=== PATIENT | male | born 1970 | race Caucasian/White ===

== ENCOUNTER 2021-05-18 20:39 | Observation (INO) | payer BC ==
[2021-05-18] MEDS ORDERED: Ondansetron PF 4 MG/2 ML Vial ONE (21:13)
[2021-05-18] MEDS ORDERED: Ketorolac Tromethamine 30 MG/ML VIAL ONE (21:14)
[2021-05-18 21:25] LABS: #Basophils 0.1 10x3/uL (0.0-0.2); #Eosinphils 0.2 10x3/uL (0.0-0.5); #Neutrophils 9.3 10x3/uL (1.5-8.4); %Basophils 1.1 % (0.0-2.0); %Eosinophils 1.8 % (0.0-6.0); %Lymphocytes 14.2 % (18.0-47.0); %Monocytes 7.8 % (0.0-10.0); %Neutrophils 74.2 % (40.0-75.0); Hemoglobin 17.7 g/dL (13.5-17.5); Mean Corpuscular HGB CONC 33.8 g/dL (32.0-36.0); Mean Corpuscular Hemoglobin 30.5 pg (27.0-33.0); Mean Corpuscular Volume 90.2 fl (81.2-95.1); Mean Platelet Volume 10.6 fl (7.4-10.4); Platelet Count 218 10x3/uL (150-450); RBC Distribution Width 12.2 % (11.5-14.5); Red Blood Cell (RBC) Count 5.81 10x6/uL (4.32-5.72); White Blood Cell (WBC) Count 12.5 10x3/uL (3.5-10.5)
[2021-05-18 21:32] LABS: ALT (SGPT) 36 U/L (8-55); AST (SGOT) 31 U/L (5-34); Albumin 4.6 g/dL (3.5-5.0); Alkaline Phosphatase 65 U/L (40-110); Anion Gap 14 mmol/L (10-20); BUN (Urea Nitrogen) 22 mg/dL (8.9-20.6); Calc. Creatinine Clearance 0 mL/min (70-130); Calcium 9.8 mg/dL (7.8-10.44); Carbon Dioxide 26 mmol/L (22-29); Chloride 103 mmol/L (98-107); Globulin 2.8 g/dL (2.4-3.5); Glucose 125 mg/dL (70-105); Potassium 4.2 mmol/L (3.5-5.1); Protein, Total 7.4 g/dL (6.0-8.3); Sodium 139 mmol/L (136-145)
[2021-05-18 21:43] LABS: Bilirubin Neg (Negative); Blood, Urine Negative (Negative); Clarity Clear (Clear); Glucose, Urine (Dipstick) Normal (Negative); Ketone, Urine 5 mg/dL (Negative); Leukocyte Negative (Negative); Nitrite Negative (Negative); Protein, Urine (Dipstick) 30 mg/dl (Neg-Trace); Specific Gravity, Urine 1.025 (1.002-1.036)
[2021-05-18 21:50] LABS: Bacteria/HPF Rare-Few HPF (None Seen); Mucous/LPF 1+ LPF (<2+); RBC/HPF None Seen HPF (0-3); Squamous Epithelial 0-3 HPF (0-3); WBC/HPF None Seen HPF (0-3)
[2021-05-18 21:54] LABS: Calcium Oxalate Crystals 2+ HPF (None Seen)
[2021-05-18] MEDS ORDERED: Morphine 4 MG/ML VIAL ONE ×2 (21:54→22:24)
[2021-05-18] MEDS ORDERED: diphenhydrAMINE 50 MG/ML VIAL ONE (23:07)
[2021-05-18] MEDS ORDERED: Metoclopramide HCl 10 MG/2 ML VIAL ONE (23:08)
[2021-05-18] MEDS ORDERED: Acetaminophen 325 MG TAB PO PRN (23:36)
[2021-05-18] MEDS ORDERED: Senokot S 8.6-50 MG TAB PO PRN (23:36)
[2021-05-18] MEDS ORDERED: Zolpidem Tartrate 5 MG TAB PO PRN (23:36)
[2021-05-18] MEDS ORDERED: Ondansetron PF 4 MG/2 ML Vial IVP PRN (23:36)
[2021-05-19 02:35] VITALS: BMI 32.1
[2021-05-19] MEDS ORDERED: Morphine 4 MG/ML VIAL SLOW IVP PRN (02:47)
[2021-05-19] MEDS ORDERED: Lactated Ringer's 500 ML IV SCH (03:00)
[2021-05-19] MEDS: Lactated Ringer's 1,000 ML IV SCH ×3 (03:21→21:49)
[2021-05-19] MEDS: Morphine 4 MG/ML VIAL SLOW IVP PRN ×2 (03:37→07:45)
[2021-05-19 05:14] LABS: #Basophils 0.1 10x3/uL (0.0-0.2); #Eosinphils 0.2 10x3/uL (0.0-0.5); #Monocytes 0.9 10x3/uL (0.0-1.1); #Neutrophils 6.2 10x3/uL (1.5-8.4); %Basophils 1.2 % (0.0-2.0); %Eosinophils 2.3 % (0.0-6.0); %Monocytes 10.3 % (0.0-10.0); %Neutrophils 67.4 % (40.0-75.0); Hemoglobin 15.2 g/dL (13.5-17.5); Mean Corpuscular HGB CONC 32.8 g/dL (32.0-36.0); Mean Corpuscular Hemoglobin 30.2 pg (27.0-33.0); Mean Corpuscular Volume 92.2 fl (81.2-95.1); Mean Platelet Volume 10.8 fl (7.4-10.4); Platelet Count 179 10x3/uL (150-450); RBC Distribution Width 12.3 % (11.5-14.5); Red Blood Cell (RBC) Count 5.03 10x6/uL (4.32-5.72); White Blood Cell (WBC) Count 9.2 10x3/uL (3.5-10.5)
[2021-05-19] MEDS ORDERED: FLU VACC QS2021-22(6MOS UP)/PF 60 MCG/0.5 ML SYRINGE IM ONE (05:15)
[2021-05-19] MEDS ORDERED: Prevnar 13-Val Conj/PF 0.5 ML SYRINGE IM ONE (05:15)
[2021-05-19 05:30] LABS: ALT (SGPT) 27 U/L (8-55); AST (SGOT) 23 U/L (5-34); Albumin 3.6 g/dL (3.5-5.0); Alkaline Phosphatase 54 U/L (40-110); Anion Gap 9 mmol/L (10-20); BUN (Urea Nitrogen) 21 mg/dL (8.9-20.6); Bilirubin, Total 0.9 mg/dL (0.2-1.2); Calc. Creatinine Clearance 97 mL/min (70-130); Calcium 8.5 mg/dL (7.8-10.44); Carbon Dioxide 27 mmol/L (22-29); Chloride 108 mmol/L (98-107); Globulin 2.1 g/dL (2.4-3.5); Glucose 97 mg/dL (70-105); Magnesium 1.9 mg/dL (1.6-2.6); Potassium 4.4 mmol/L (3.5-5.1); Protein, Total 5.7 g/dL (6.0-8.3); Sodium 140 mmol/L (136-145)
[2021-05-19] MEDS: HYDROcodone/Acetaminophen 5/325 mg Tablet PO PRN ×4 (06:24→21:36)
[2021-05-19] MEDS ORDERED: hydrALAZINE 20 MG/ML VIAL SLOW IVP PRN (06:58)
[2021-05-19] MEDS ORDERED: Bisacodyl 5 MG TAB PO PRN (06:58)
[2021-05-19] MEDS ORDERED: GUAIFENESIN SF SOLN 200 MG/10 ML UDCUP PO PRN (06:58)
[2021-05-19] MEDS ORDERED: Loratadine 10 MG TAB PO PRN (06:58)
[2021-05-19] MEDS ORDERED: Cepastat Lozenges 1 LOZ PO PRN (06:58)
[2021-05-19] MEDS ORDERED: Loperamide HCl 2 MG CAP PO PRN (06:58)
[2021-05-19] MEDS ORDERED: Ondansetron ODT 4 MG TAB PO PRN (06:58)
[2021-05-19] MEDS ORDERED: Sodium Chloride 0.65% Nasal 44 ML BOT EA NARE PRN (06:58)
[2021-05-19] MEDS: Mometasone/Formoterol 200/5 60 PUFF INH SCH ×2 (07:15→19:40)
[2021-05-19] MEDS: Albuterol Sulfate 2.5 mg/3 ml Neb NEB PRN ×4 (07:31→19:30)
[2021-05-19] MEDS ORDERED: Famotidine/PF 20 mg/2ml Vial SLOW IVP SCH (09:00)
[2021-05-19] MEDS ORDERED: Ketorolac Tromethamine 30 MG/ML VIAL IVP PRN (09:43)
[2021-05-19] MEDS: Famotidine 20 MG TAB PO SCH ×2 (09:47→21:36)
[2021-05-19] MEDS: Enoxaparin Sodium 40 MG/0.4 ML SYRINGE SC SCH (11:39)
[2021-05-19 12:40] LABS: Amphetamine Not Detected (NotDetected); Barbiturates Screen Not Detected (NotDetected); Benzodiazepine Screen Not Detected (NotDetected); Cocaine Metabolite Screen Not Detected (NotDetected); Methadone Not Detected (NotDetected); Methamphetamine Not Detected (NotDetected); Opiate Screen Detected (NotDetected); Oxycodone Screen Not Detected (NotDetected); Phencyclidine (PCP) Not Detected (NotDetected); THC/Cannabinoid Screen Not Detected (NotDetected); Tricyclic Screen Not Detected (NotDetected)
[2021-05-19] MEDS ORDERED: Montelukast Sodium 10 mg Tablet PO SCH (21:00)
[2021-05-20] MEDS: Lactated Ringer's 1,000 ML IV SCH ×3 (03:49→13:36)
[2021-05-20 06:24] LABS: #Basophils 0.1 10x3/uL (0.0-0.2); #Eosinphils 0.1 10x3/uL (0.0-0.5); #Monocytes 0.7 10x3/uL (0.0-1.1); #Neutrophils 4.9 10x3/uL (1.5-8.4); %Basophils 0.8 % (0.0-2.0); %Eosinophils 1.9 % (0.0-6.0); %Lymphocytes 21.9 % (18.0-47.0); %Monocytes 9.2 % (0.0-10.0); %Neutrophils 65.4 % (40.0-75.0); Mean Corpuscular Hemoglobin 30.2 pg (27.0-33.0); Mean Corpuscular Volume 91.5 fl (81.2-95.1); Mean Platelet Volume 10.9 fl (7.4-10.4); Platelet Count 164 10x3/uL (150-450); RBC Distribution Width 12.1 % (11.5-14.5); Red Blood Cell (RBC) Count 4.96 10x6/uL (4.32-5.72); White Blood Cell (WBC) Count 7.5 10x3/uL (3.5-10.5)
[2021-05-20 06:37] LABS: Anion Gap 9 mmol/L (10-20); BUN (Urea Nitrogen) 11 mg/dL (8.9-20.6); Calc. Creatinine Clearance 113 mL/min (70-130); Calcium 8.7 mg/dL (7.8-10.44); Carbon Dioxide 29 mmol/L (22-29); Chloride 106 mmol/L (98-107); Glucose 92 mg/dL (70-105); Magnesium 1.8 mg/dL (1.6-2.6); Potassium 4.5 mmol/L (3.5-5.1); Sodium 139 mmol/L (136-145)
[2021-05-20] MEDS: Mometasone/Formoterol 200/5 60 PUFF INH SCH (07:40)
[2021-05-20] MEDS: Albuterol Sulfate 2.5 mg/3 ml Neb NEB PRN ×2 (07:40→10:50)
[2021-05-20] MEDS: Famotidine 20 MG TAB PO SCH (08:22)
[2021-05-20] MEDS: Enoxaparin Sodium 40 MG/0.4 ML SYRINGE SC SCH (08:22)
[2021-05-20 11:59] LABS: SARS-CoV-2 PCR by NAA Not Detected (NotDetected)
[2021-05-20 12:38] VITALS: BP 137/73; TEMP 98.6
== END 2021-05-20 15:25 | disposition home or self-care (01) ==
LOC: CSHERS 20:39 → CSHTELE 05-19 02:29
PROVIDERS: ADMIT Student in an Organized Health Care Education/Training Program; ATTEND Family Medicine
DX: N28.9 Disorder of kidney and ureter, unspecified (principal); E86.9 Volume depletion, unspecified; R10.31 Right lower quadrant pain; J98.4 Other disorders of lung; Z87.442 Personal history of urinary calculi; E29.1 Testicular hypofunction; R29.90 Unspecified symptoms and signs involving the nervous system; Z20.822 Contact with and (suspected) exposure to COVID-19; Z79.899 Other long term (current) drug therapy
CPT/HCPCS: 36415; 74177; 80048; 80053; 80306; 81003; 81015; 82550; 83735; 84100; 85025; 94640; 94664; 96365; 96372; 96375; 96376; G0378; J1200; J1650; J1885; J2270; J2405; J2765; J7120; J7611; U0003; U0005